=== PATIENT | male | born 1965 | race Caucasian/White ===

== ENCOUNTER → 2021-09-23 | Outpatient (CLI) | payer OTHER ==
[~2021-09-23] MED LIST: ASPI81CH PO; HYDACE5 PO; IBUP800 PO; LISHYD1012 PO
== END | disposition home or self-care (01) ==
LOC: LAB 17:54 → LAB SHORT 17:54
DX: R30.0 Dysuria (principal)
CPT/HCPCS: 87077; 87086; 87186

== ENCOUNTER → 2023-01-08 | Outpatient (CLI) | payer BC | LOC: LAB 11:00 → LAB SHORT 11:00 | DX: R30.0 Dysuria (principal) | CPT/HCPCS: 87077; 87086; 87186 ==